=== PATIENT | male | born 1950 | race Caucasian/White ===

== ENCOUNTER 2019-02-10 09:00 | Day surgery (SDC) | payer OTHER ==
[~2019-02-10] VITALS: Ht 185.4 cm; Wt 104.3 kg
[2019-02-10 09:47] VITALS: BP 155/80
[2019-02-10 15:53] VITALS: BP 153/82
== END 2019-02-10 15:40 | disposition home or self-care (01) ==
LOC: DS 09:00 → OR 11:30 → DS 12:00
DX: E04.2 Nontoxic multinodular goiter (principal); I10 Essential (primary) hypertension; H93.13 Tinnitus, bilateral; E66.9 Obesity, unspecified; E78.5 Hyperlipidemia, unspecified; Z79.899 Other long term (current) drug therapy; Z90.89 Acquired absence of other organs; Z98.890 Other specified postprocedural states; Z68.30 Body mass index [BMI] 30.0-30.9, adult
CPT/HCPCS: J0330; J0690; J2175; J2250; J2405; J2704; J3010; J3490; J7120